=== PATIENT | female | born 2000 | race Two or more races ===

== ENCOUNTER 2022-11-19 11:50 | Outpatient (CLI) | payer MEDICAID, SELFPAY ==
[2022-11-19 14:21] LABS: Hematocrit 34.1 % (37.0-47.0); Hemoglobin 10.9 g/dL (12.0-15.0); Mean Corpuscular Hemoglobin 29.8 pg (26-34); Mean Corpuscular Volume 93.2 fl (80-100); Mean Platelet Volume 12.6 fl (7.4-10.4); Platelet Count Result 187 k/mm3 (150-375); Red Blood Count 3.66 M/mm3 (4.2-5.4); Red Cell Distribution Width 12.6 % (11.5-14.5); White Blood Count 6.7 K/mm3 (4.5-10.0)
[2022-11-19 14:32] LABS: Glucose 1 Hour PP 50gm Dose 126 mg/dL
[2022-11-22 09:30] LABS: HIV 1 2 Ag Ab 4th Gen w Rflxs Nonreactive (Nonreactive)
== END 2022-11-19 11:51 | disposition home or self-care (01) ==
PROVIDERS: Visit Provider Student in an Organized Health Care Education/Training Program
DX: N94.89 Other specified conditions associated with female genital organs and menstrual cycle (principal)
CPT/HCPCS: 36415; 82947; 85027; 86850; 86900; 86901; 87389

== ENCOUNTER 2023-01-05 10:53 | Observation (INO) | payer OTHER, SELFPAY ==
--- NOTE | 2023-01-05 10:53 | OBADM ---
This patient, Selma Francois, admitted to the OB room Labor/Delivery/Recovery 105 for observation. Patient/family oriented to hospital policies and general routines including ID bracelet, bed and alarms, visiting hours, pain management, procedures, bathroom and other care routines, personal items, smoking policy, room service/diet, and visiting hours. Patient/Family are encouraged to report perceived risks to care and to ask questions if they do not understand what they are told or what they should do.
--- NOTE | 2023-01-07 13:17 | PM.OBTRLD ---
OB - Triage/Final Diagnosis Visit Information Comments/Additional reasons for admission: I have assessed the risk for this patient, Selma Francois, and determined that she would benefit from observation care. Final Diagnosis (1) Abdominal pain affecting : Code(s): O26.899 - Other specified related conditions, unspecified trimester; R10.9 - Unspecified abdominal pain Status: Acute
== END 2023-01-05 13:58 | disposition home or self-care (01) ==
PROVIDERS: Admitting Provider Obstetrics & Gynecology; Visit Provider Obstetrics & Gynecology
DX: O26.893 Other specified pregnancy related conditions, third trimester (principal); R10.9 Unspecified abdominal pain; Z3A.39 39 weeks gestation of pregnancy
CPT/HCPCS: G0378; G0379

== ENCOUNTER 2023-01-06 04:31 | Inpatient (IN) | payer OTHER, SELFPAY ==
[2023-01-06] VITALS (48 sets, daily range): BP systolic 110–144; BP diastolic 62–100; PULSE 61–121; RESP 16–18; TEMP 36.5–37.3; O2SAT 96–100
--- NOTE | 2023-01-06 05:32 | LDADM ---
This patient, Selma Francois, was admitted to Labor/Delivery/Recovery 104 on 01/06/23 at 04:31. Plans for labor, pain management and were discussed with patient. Patient/family oriented to hospital policies and general routines including ID bracelet, bed and alarms, visiting hours, pain management, procedures, bathroom and other care routines, personal items, smoking policy, room service/diet and guest tray routines, security routines, and visiting hours. Patient/Family are encouraged to report perceived risks to care and to ask questions if they do not understand what they are told or what they should do. See OBIX for further documentation.
[2023-01-06] MEDS: LACTATED RINGERS 1,000 ML 125 ML IV CONT (05:55)
[2023-01-06] MEDS: AMPICILLIN 2 GM/NS 100 ML 2 GM/100 ML BAG IVPB (05:55)
[2023-01-06 06:01] LABS: Basophils Percent Auto 0.1 % (0.2-1.2); Eosinophils Absolute Auto 0.1 K/mm3 (0-0.3); Eosinophils Percent Auto 0.9 % (0-4.4); Hemoglobin 11.9 g/dL (12.0-15.0); Immature Granulocyte Absolute 0.06 K/mm3 (0.00-0.031); Immature Granulocyte Percent A 0.6 % (0-0.5); Lymphocytes Absolute Auto 2.22 K/mm3 (0.9-3.2); Lymphocytes Percent Auto 23.4 % (18.3-44.2); Mean Corpuscular HGB Conc 32.2 g/dl (32-36); Mean Corpuscular Hemoglobin 28.5 pg (26-34); Mean Corpuscular Volume 88.7 fl (80-100); Mean Platelet Volume 12.1 fl (7.4-10.4); Monocytes Absolute Auto 0.7 K/mm3 (0.1-0.6); Monocytes Percent Auto 7.2 % (2.6-8.5); Neutrophils Absolute Auto 6.4 K/mm3 (1.3-6.7); Neutrophils Percent Auto 67.8 % (45.5-73.1); Platelet Count Result 210 k/mm3 (150-375); Red Blood Count 4.17 M/mm3 (4.2-5.4); Red Cell Distribution Width 13.6 % (11.5-14.5); White Blood Count 9.5 K/mm3 (4.5-10.0)
--- NOTE | 2023-01-06 07:59 | PM.IMHP ---
H&P: HPI History of Present Illness Date/Time: 01/06/23 07:59 Chief Complaint: contractions Narrative: Selma is a 22yo @ 39.3wks who presented in labor. She presented to L&D yesterday, 01/05/23 with light spotting/contractions and was found to be 2cm; she desired to go labor at home. She re-presented this morning and was found to be 5-6cm dilated. She denies LOF. She has felt good movements. Her is complicated by: - Late transfer of care from [place] - GBS positive Review of Systems Constitutional: Constitutional: Denies chills, Denies fever(s) and Denies headache(s) Eyes: Eyes: Denies change in vision ENT: Denies headache(s) Cardiovascular: Cardiovascular: Denies chest pain and Denies dyspnea Respiratory: Respiratory: Denies dyspnea Genitourinary: Genitourinary: Denies abnormal vaginal bleeding and Denies vaginal discharge Neurologic: Denies headache(s) Psychiatric: Psychiatric: Denies anxiety and Denies depression [facility] Past Medical History Medical History Suppression of menses Family History Family History Other Diabetes mellitus Hypertension Social History Social History Smoking status: Never smoker Second hand tobacco smoke exposure: No Alcohol intake: former Substance use: never Lack of Transportation: No Lack of Food: Never True Current Housing: I Have Housing Concerned About Future Housing: No Difficulty Paying Gas/Electric Bills: No Difficulty Paying for Meds: No Currently Unemployed: No Education: High School Diploma/GED Difficulty w/ Childcare or Family Care: No Living arrangements: with family Occupation/Education: unemployed Gender identity (if verbalized by the patient): Female Sexual Orientation (if Verbalized by the Patient): Straight or Heterosexual Spiritual care concerns: No Meds Home Medications and Allergies Home Medications Medication Instructions Recorded Confirmed Type vits no.126-ferrous fum tablet PO 11/19/22 12/31/22 History 28 mg iron-folic acid 800 mcg tablet (Classic ) hydrocortisone 0.5 % topical cream 1 applic topical BID PRN itching 12/31/22 12/31/22 Rx #28.4 grams Allergies Allergy/AdvReac Type Severity Reaction Status Date / Time No Known Allergies Allergy Verified 12/31/22 15:48 Vital Signs Vital Signs - 24 hr 01/06/23 05:16 01/06/23 06:16 01/06/23 06:31 Pulse Rate 77 76 84 Blood Pressure 136/80 133/85 138/81 01/06/23 06:46 01/06/23 07:01 01/06/23 07:16 Pulse Rate 83 65 85 Blood Pressure 124/85 121/87 125/81 01/06/23 07:31 01/06/23 07:46 Pulse Rate 74 77 Blood Pressure 119/78 115/87 Exam Const: General: cooperative, healthy appearing and obese Nutritional Appearance: obese Orientation/consciousness: patient oriented x3 Resp: Effort & Inspection: normal respiratory effort Cardio: Rate: regular rate GI: GI Palp: No abdominal tenderness : Other: FHT's: 140's/ mod ashley/ + accels/ no decels - cat 1 TOCO: ctxs q1-3min Cervix: 6.5/90/-1 Membranes: intact Presentation: cephalic Skin: General skin exam: normal color Neuro: General: patient oriented x3 Extrem: General: normal to inspection Psych: Appearance: grossly normal Affect: normal affect Attitude: cooperative H&P: Results Labs Labs: Short CBC 01/06/23 Range/Units 05:31 WBC 9.5 (4.5-10.0) K/mm3 Hgb 11.9 L (12.0-15.0) g/dL Hct 37.0 (37.0-47.0) % Plt Count 210 (150-375) k/mm3 Assessment and Plan Assessment and plan (1) Active labor at term: Status: Acute (2) GBS (group B Streptococcus carrier), +RV culture, currently : Code(s): O99.820 - Streptococcus B carrier state complicating Status: Acute Plan - Admitted to L&D
--- NOTE | 2023-01-06 08:09 | WPDHPUPDATE1 ---
History and Physical Update Update Date/Time: 01/06/23 08:09 History and Physical has been reviewed, including an updated exam of the patient. There are NO changes in the patient's condition. Risks, benefits, and alternatives have been discussed and questions answered. Patient agrees to proceed with procedure.
--- NOTE | 2023-01-06 09:29 | PM.OBPNLAB ---
Pain Control Date/time seen: 01/06/23 09:29 Pain control: tolerating well Pelvic Exam Dilation (cm): 8 Effacement (%): 80 station: 0 Amniotic membrane status: Ruptured (AROM, clear 0925) Contractions Monitor mode: External Contraction frequency: 5 Contraction pattern: Regular Status status: Category l Assessment and Plan Assessment: active labor Plan: continuous present management
[2023-01-06] MEDS: AMPICILLIN 1 GM/NS 50 ML 1 GM/50 ML BAG IVPB (10:02)
--- NOTE | 2023-01-06 12:44 | PM.OBPNLAB ---
Pain Control Date/time seen: 01/06/23 12:44 Pain control: tolerating well Pelvic Exam Dilation (cm): 9 Effacement (%): 80 station: 0 Amniotic membrane status: Ruptured (AROM, clear 0925) Contractions Monitor mode: External Contraction frequency: 3 (-4) Contraction pattern: Regular Status status: Category l Assessment and Plan Assessment: active labor Plan: continuous present management
[2023-01-06] MEDS: OXYTOCIN 30 UNITS/NS 500 ML 30 UNITS/500 ML BAG 999 UNITS IV CONT (14:04)
--- NOTE | 2023-01-06 14:18 | PM.OBPRVD ---
OB - Delivery Note Procedure Delivery date: 01/06/23 Events: Positive Group B Strep (GBS) Delivery augmentation: Rupture of Membranes Delivery monitor: External FHT and External Uterine Route of delivery: Laceration Description: Labial (right) Delivery repair: vicryl Specimen: No Quantitative Blood Loss (ml): 250 Anesthesia type: Local (6cc of 1% lido) Disposition: Floor [place] Baby Date of : 01/06/23 Time of : 14:01 Weeks of gestation at delivery: 39 (.3) Infant gender: Male presentation: vertex Placenta delivery description: Expressed Cord Vessel Description: 3 Vessels and Delayed Cord Clamping score one minute: 9 score five minutes: 9 Narrative: Selma progressed to anterior lip and had strong desire to push as she did not have an epidural. The lip was easily reduced and she pushed with good maternal effort for approximately 15 minutes. She delivered the head over intact perineum. No nuchal cord was palpated. She easily delivered the 's shoulders and body without complication. The was immediately placed skin to skin and his mouth and nose were bulb suctioned and spontaneous cry was heard. Delayed cord clamping was performed. The umbilical cord was doubly clamped and cut. A segment of the cord was collected for cord gases. The remaining cord blood was collected for typing. With Pitocin running and gentle downward traction on the cord, the placenta delivered without complications. Minimal bleeding was noted. She was examined and a right labial laceration was identified. She was anesthetized using 1% lidocaine. The laceration was repaired in the normal fashion using 3-0 Vicryl and good hemostasis was noted. Bimanual massage was performed and a small piece of membrane was removed. Good fundal tone with minimal bleeding was noted. Sponge, lap, instrument, and needle counts were correct at the end of the procedure. Mom and baby were left bonding in the birthing suite in stable condition. [facility] Delivery Billing Delivery Delivery: Delivery Charge
[2023-01-06] MEDS: OXYTOCIN 30 UNITS/NS 500 ML 30 UNITS/500 ML BAG 125 UNITS IV CONT (14:39)
[2023-01-06] MEDS: IBUPROFEN 600 MG TABLET PO ×2 (14:42→23:40)
[2023-01-06] MEDS: ACETAMINOPHEN 325 MG TABLET 650 MG PO (18:48)
--- NOTE | 2023-01-06 20:05 | OBPPTRN ---
Patient transferred to post room #286 via W/C. Support person present. Oriented to unit, room, information board, rooming in, admission packet and security measures. ZAIRE barnett. Patient verbalizes understanding.
[2023-01-06 22:05] LABS: Rubella IgG Antibody 19.9 IU/ML
[2023-01-06 22:10] LABS: Hepatitis B Surface Antigen Negative (Negative)
[2023-01-07] MEDS: ACETAMINOPHEN 325 MG TABLET 650 MG PO ×2 (04:46→16:35)
[2023-01-07 05:04] LABS: Hematocrit 33.5 % (37.0-47.0); Hemoglobin 10.7 g/dL (12.0-15.0); Mean Corpuscular HGB Conc 31.9 g/dl (32-36); Mean Corpuscular Hemoglobin 28.5 pg (26-34); Mean Corpuscular Volume 89.3 fl (80-100); Mean Platelet Volume 12.2 fl (7.4-10.4); Platelet Count Result 195 k/mm3 (150-375); Red Blood Count 3.75 M/mm3 (4.2-5.4); Red Cell Distribution Width 13.8 % (11.5-14.5); White Blood Count 13.3 K/mm3 (4.5-10.0)
--- NOTE | 2023-01-07 07:02 | P.PNOB_ITS ---
OB - PN: Subj Subjective Date/time seen: 01/07/23 07:02 Narrative: PPD#1 Selma reports doing well today. Her bleeding is resist coater developer. Her pain is controlled. She is tolerating regular diet, voiding, passing gas, and ambulating without issues. She is breast feeding. She would like her son circumcised. OB - PN: Obj Data Labs 01/07/23 04:48 Labs: Laboratory Results - last 24 hr 01/06/23 01/07/23 05:31 04:48 WBC 13.3 H RBC 3.75 L Hgb 10.7 L Hct 33.5 L MCV 89.3 MCH 28.5 MCHC 31.9 L RDW 13.8 Plt Count 195 MPV 12.2 H Hep Bs Antigen Negative Rubella IgG Antibody 19.9 OB - PN A/P Assessment and Plan (1) Normal vaginal delivery of first : Code(s): O80 - Encounter for full-term uncomplicated delivery Status: Acute Plan day: 1 Plan: routine care Time Spent With Patient Time: Total time spent is greater than 50% in coordination of care (as documented) at patient's floor/unit and/or counseling patient: Review of Systems Constitutional: Constitutional: Denies chills, Denies fever(s) and Denies headache(s) Eyes: Eyes: Denies change in vision ENT: Denies dizziness and Denies headache(s) Cardiovascular: Cardiovascular: Denies chest pain, Denies palpitations and Denies dyspnea Respiratory: Respiratory: Denies cough and Denies dyspnea Gastrointestinal: Gastrointestinal: Denies nausea and Denies vomiting Neurologic: Denies dizziness and Denies headache(s) Endocrine: Endocrine: Denies palpitations Exam Const: General: cooperative, comfortable and no acute distress Orientation/consciousness: patient oriented x3 Resp: Effort & Inspection: normal respiratory effort Auscultation: clear to auscultation bilaterally Cardio: Rate: regular rate GI: Inspection: non-distended GI Palp: No abdominal tenderness and Yes Soft to palpation Auscultation: normal bowel sounds : Other: fundus firm Skin: General skin exam: normal color Neuro: General: patient oriented x3 Extrem: General: normal to inspection Psych: Appearance: grossly normal Affect: normal affect Attitude: cooperative
[2023-01-07 08:25] VITALS: BP 113/73; PULSE 72; RESP 18; TEMP 36.9; O2SAT 98
[2023-01-07] MEDS: IBUPROFEN 600 MG TABLET PO ×2 (08:52→22:26)
[2023-01-07] MEDS: DOCUSATE SODIUM 100 MG CAPSULE PO ×2 (08:52→16:35)
[2023-01-07] MEDS: MULTIVIT/MIN/PREN/FOL AC/IRON TABLET 1 TAB PO (08:52)
--- NOTE | 2023-01-07 09:44 | PC.NURSE ---
[id number] Welder Helper Maryam #[id number] facilitated introductions, then consulted with patient to assess needs related to . Mother led the conversation with her?plans to feed?her , the?experience so far and she has supplemented thinking was hungry after . Mother works well with her infant with encouragement and education. Encouraged understanding of the benefits of skin to skin (demonstrating unwrapping and placing upright on her chest), stimulating with massage touch, changing positions to encourage wakefulness, how to watch for early feeding cues, responsive feeding, feeding on demand (aiming for 8-12 times in 24 hours, about every 2-3 hours), milk production, building/maintaining a milk supply, duration of feeding, signs of adequate intake/output and how to record on the feeding sheet. Reviewed positioning, alignment, supporting the breast to facilitate a deep latch, asymmetrical latch (off-center), leading with the chin with a big, open, wide gape and body close to mother. Infant latched optimally to the right, then the left breast in crosscradle, then football position. Education given to mother of how to visualize suck/swallow ratios and listen for drinking at the breast which demonstrated rarely. was able to maintain latch without discomfort to mother on the right breast, however,once detached from the left and misshaping was visualized mother did say if felt pinchy while she was . Nipple care reviewed with optimal latch and good positioning. Mother has everted nipples and there is some concern that infant is latching to mothers nipples as he would a bottle. Reviewed good handwashing when or touching the breast/nipples to prevent infection. Resources used to facilitate learning were used with the guide in [place]. Mother voiced understanding of skin to skin, stimulating with massage touch, responsive feedings, talking to to encourage if it has been 2 -2.5 hours since the start of the last , to call if infant does not latch, or if there is discomfort with . Resources provided for inpatient/outpatient with name written on the communication board. Mother voiced understanding of information, demonstrated learning and will call if there is a request for assistance. Reported to the Primary RN.
--- NOTE | 2023-01-07 10:55 | WPDANLDPN2 ---
Anes-Prog Note L&D Date/Time: 01/07/23 10:55 Comfortable throughout: labor and delivery Neuraxial method: epidural Epidural/Spinal procedure site: clean & non-tender Neuro status: Neuro function grossly intact. Cardiovascular status: normal Respiratory status: normal Airway patency: baseline Mental status: baseline Post-Op hydration status: normal Vital Signs: Last Vital Signs Temp 36.9 C 01/07/23 08:25 Pulse 72 01/07/23 08:25 Resp 18 01/07/23 08:25 BP 113/73 01/07/23 08:25 Pulse Ox 98 01/07/23 08:25 O2 Del Method Room Air 01/07/23 07:15 Pain score (VAS): 0 I/O: Intake & Output 01/06/23 01/07/23 01/07/23 23:59 07:59 15:59 Output Total 100 Balance -100 Post-procedural complaints: none Patient feedback: Patient satisfied with anesthetic care.
[2023-01-07 11:59] VITALS: BP 122/68; PULSE 90; RESP 16; TEMP 36.4; O2SAT 98
--- NOTE | 2023-01-07 12:13 | PC.NURSE ---
[id number] Chair Spring Assembler Zena #[id number] assisted with consulted with patient to assess needs related to . Mother works well with her infant with encouragement. Reviewed working with infant, supporting breast and how to protect the nipples with an optimal deep latch, good positioning, and good hand washing. Encouraged understanding the benefits of skin to skin, responding to feeding cues, frequencies of feeding 8-12 times in 24 hours (approximately 2-3 hours), duration of feedings, milk production, intake/output feeding sheet and signs of adequate intake encouraging swallowing at the breast. Reviewed positioning and alignment, supporting breast, off-centered (asymmetrical latch) and leading with the chin with big, open, wide gape. latched optimally to the right breast in football position effectively . Education given to mother of how to visualize suck/swallow ratios and listen for drinking at the breast. Infant was able to maintain latch without discomfort to mother. Nipple care reviewed with optimal latch, good positioning and using clean hands when feeding her and touching her breast. Infant breastfed for 10 minutes, then repositioned his latch and began non-nutritive suckling. Reviewed with mother the visual differences between effectively and not optimally latched drinking at the breast. Infant was placed [id number], then effectively breastfed on the left breast with football positioning. Mother voiced understanding of the education shared, to call for assistance if the infant does not latch or if there is discomfort with . Reported to the Primary RN.
[2023-01-07 12:40] LABS: Rapid Plasma Reagin Non-Reactive (NonReactive)
[2023-01-07 20:20] VITALS: BP 131/92; PULSE 77; RESP 16; TEMP 36.4; O2SAT 100
--- NOTE | 2023-01-08 05:54 | PM.OBDSVD ---
DS: Admitting Diagnosis Discharge Date 01/08/23 Admitting Diagnosis active labor at term gbs + DS: Discharge Diagnosis Discharge Diagnosis (1) Normal vaginal delivery of first : Code(s): O80 - Encounter for full-term uncomplicated delivery Status: Acute (2) GBS (group B Streptococcus carrier), +RV culture, currently : Code(s): O99.820 - Streptococcus B carrier state complicating Status: Acute OB - DS: Summary OB Procedures : Ultrasound OB Procedures Intrapartum: Spontaneous Vag Delivery OB Procedures: : None Peripartum Data Infant Delivery Method: Natural Vaginal Laceration Description: Labial complications: none 1: Gender: Male Disposition of : home Status at Discharge Functional status at discharge: independent ambulation Overall status at discharge: patient is back to baseline Time Spent with Patient Time attestation: Total time spent providing and/or coordinating discharge services: Time spent: Less than 30 minutes Exam Const: General: cooperative, comfortable, no acute distress and obese Orientation/consciousness: patient oriented x3 Resp: Effort & Inspection: normal respiratory effort Auscultation: clear to auscultation bilaterally Cardio: Rate: regular rate GI: Inspection: non-distended GI Palp: No abdominal tenderness and Yes Soft to palpation Auscultation: normal bowel sounds : Other: fundus firm Skin: General skin exam: normal color Neuro: General: patient oriented x3 Extrem: General: normal to inspection Psych: Appearance: grossly normal Affect: normal affect Attitude: cooperative DS: Data Data Completed and Pending Labs on day of discharge: Labs from last 24 hours 01/06/23 05:31 RPR Non-reactive Discharge Plan Discharge Attending physician on discharge: Mariola Mosley Discharging Clinician: Mariola Mosley Anticipated Discharge Date/Time: 01/08/23 09:00 Patient Disposition: Home, Self-Care Activity: may shower and pelvic rest Diet: regular Patient Instructions: Antibiotic Form, Vaginal Delivery (DC) Stand Alone Forms: General Discharge Information Follow-up/Referrals: Mariola Mosley MD [Physician] - 4 Weeks Discharge Medications: New acetaminophen 500 mg tablet 1,000 mg PO TID Qty: 60 0RF ibuprofen 800 mg tablet 800 mg PO TID Qty: 30 0RF docusate sodium [Colace] 100 mg capsule 100 mg PO BID Qty: 120 0RF Continued Classic 28 mg iron- 800 mcg tablet PO Discontinued hydrocortisone 0.5 % cream 1 applic topical BID PRN (Reason: itching) Qty: 28.4 0RF Date of admission: 01/06/23 04:31 Primary Care Provider: PHYSICIAN,FRONT OFFICE MEDICAL ASSISTANT Admitting Provider: Zbigniew Moss Attending physician on admission: Zbigniew Moss Condition: Stable
[2023-01-08 06:45] VITALS: BP 101/83; PULSE 83; RESP 18; TEMP 36.6; O2SAT 100
[2023-01-08] MEDS: MULTIVIT/MIN/PREN/FOL AC/IRON TABLET 1 TAB PO (10:25)
[2023-01-08] MEDS: IBUPROFEN 600 MG TABLET PO (10:25)
[2023-01-08] MEDS: DOCUSATE SODIUM 100 MG CAPSULE PO (10:25)
--- NOTE | 2023-01-08 18:56 | PC.NURSE ---
[id number] SO was here all day and did translating for when she did not understand which was not very often. For D/C teaching the Czech Welcome Packet was given on admission and both parents view the Czech D/C video.
--- NOTE | 2023-01-08 18:59 | PC.NURSE ---
1025 Patient viewed the discharge video Mother & Baby Care, The First Two Weeks . Patient was given the opportunity and encouraged to ask questions. Patient verbalized understanding of information shared and has been given the mother/baby guide for home reference.
[2023-01-09 11:20] VITALS: BP 120/82; PULSE 79; RESP 18; TEMP 37; O2SAT 100
== END 2023-01-08 14:25 | disposition home or self-care (01) | DRG 560 ==
LOC: ANHOB2 01-08 12:06 → ANHLDR 01-09 08:26 → ANHOB2 01-09 08:26
PROVIDERS: Admitting Provider Obstetrics & Gynecology; Visit Provider Obstetrics & Gynecology
DX: O99.824 Streptococcus B carrier state complicating childbirth (principal); Z37.0 Single live birth; Z3A.39 39 weeks gestation of pregnancy; O70.0 First degree perineal laceration during delivery
CPT/HCPCS: 36415; 85025; 85027; 86592; 86762; 86850; 86900; 86901; 87340; A9270; J0290; J2590; J7120

== ENCOUNTER 2023-03-05 17:50 | Outpatient (CLI) | payer OTHER, SELFPAY ==
[2023-03-05 18:49] LABS: Beta HCG Quantitative < 2.39 mIU/ML
== END 2023-03-05 17:51 | disposition home or self-care (01) ==
PROVIDERS: Visit Provider Obstetrics & Gynecology
DX: N92.6 Irregular menstruation, unspecified (principal)
CPT/HCPCS: 36415; 84702